=== PATIENT | female | born 1935 | race Caucasian/White ===

== ENCOUNTER 2022-01-31 10:08 | Emergency (ER) | payer MEDICARE, SELFPAY ==
[2022-01-31 10:20] VITALS: PULSE 90; RESP 18; O2SAT 97; BMI 18.6
[2022-01-31 10:46] VITALS: BP 146/80; PULSE 90; RESP 18; TEMP 36.4; O2SAT 97; BMI 18.6
[2022-01-31 11:01] LABS: Apearance,Urine Clear (Clear); Bilirubin,Urine 2+ (Negative); Blood, Urine 2+ (Negative); Color,Urine Orange (Yellow); Glucose,Urine (UA) 1+ (Negative); Ketones,Urine SMALL (Negative); Protein,Urine 4+ (Negative)
[2022-01-31 11:02] LABS: UTC Leukocyte Esterase,Urine 3+ (Negative); UTC Nitrate,Urine Positive (Negative); Urobilinogen,Urine >=8 EU/dl (0.2)
--- NOTE | 2022-01-31 11:02 | HMH.EDUTC ---
[facility] [place] Clinical Impression: UTI (urinary tract infection) Qualifiers: Urinary tract infection type: site unspecified Hematuria presence: with hematuria Qualified Code(s): N39.0 - Urinary tract infection, site not specified Disposition: Home, Self-Care Condition on Discharge: Good Instructions: Urinary Tract Infection Additional Instructions: Drink plenty of fluids. Take tylenol or ibuprofen for pain or fever. Take the medications as directed. Follow up with your regular doctor. GO TO THE ER FOR ANY WORSENING SYMPTOMS The pyridium will make your urine turn orange, this is an expected side effect. It will stain your clothes if it comes into contact with them. We will culture the urine. That will tell what bacteria is causing your infection and which antibiotics will treat it best. Sometimes the first antibiotic we prescribe turns out to not work against different bacteria. So, make sure you follow up within 3 days if you are not getting better. Prescriptions: Ciprofloxacin HCl [Cipro 500mg Tab] 500 mg PO BID 7 Days #14 tab Transmission Status: Received by [facility] #[id number] Phenazopyridine HCl [Pyridium 200mg Tablet] 200 pow PO TID #6 tab Transmission Status: Received by [facility] #[id number] Referrals: Provider,Referral, MD [Primary Care Provider] - Time of Disposition: 11:15 Medical Decision Making - Medical Records Medical records reviewed: No: I reviewed the patient's medical records. - Jay Inquiry Pt receiving controlled substance: No Vital Signs: 01/31/22 10:20 01/31/22 10:46 01/31/22 11:18 Temperature 97.5 F L 97.5 F L Temperature Source Temporal Artery Scan Pulse Rate 90 Pulse Rate [Left Radial] 90 90 Respiratory Rate 18 18 18 Blood Pressure 146/80 H Blood Pressure [Right Arm] 146/80 H Blood Pressure Mean [Right Arm] 102 02 Sat by Pulse Oximetry 97 97 Oxygen Delivery Method Room Air - Lab Data Lab results reviewed: Yes: I reviewed the patient's lab results. Lab Results 01/31/22 10:59: Urine Color [place], Urine Appearance Clear, Urine pH 5.0, Ur Specific [place] 1.020, Urine Protein 4+, Urine Glucose (UA) 1+, Urine Ketones Small, Urine Blood 2+, Urine Nitrate Positive A, Urine Bilirubin 2+ A, Urine Urobilinogen >=8, Ur Leukocyte Esterase 3+ A Orders (Tests/Meds): ORDERS Category Date Time Status Urine Culture Stat Micro 01/31/22 10:52 [place] [facility] [place] - General Stated complaint: possible kidney inf Time Seen by Provider: 01/31/22 11:02 Mode of Arrival: Wheelchair Source of Information: Patient, Spouse Limitations: hearing impaired Description of Symptoms (Recalled from Triage Doc. by RN): pt thinks she has a UTI. pt c/o burning with urination. HEENT Symptoms (Recalled from RN notes): No Resp Symptoms (Recalled from RN notes): No Skin Symptoms (Recalled from RN notes): No MS Symptoms (Recalled from RN notes): No Functional Status (Recalled from RN notes): wnl - History of Present Illness Provider Complaint: She has had burning with urination for the past 5 days. - Related Data Previous Rx's Medication Instructions Recorded Ciprofloxacin HCl [Cipro 500mg 500 mg PO BID 7 Days #14 tab 01/31/22 Tab] Phenazopyridine HCl [Pyridium 200 pow PO TID #6 tab 01/31/22 200mg Tablet] Allergies Allergy/AdvReac Type Severity Reaction Status Date / Time No Known Allergies Allergy Verified 01/31/22 10:59 - Worker's Comp Is this a Worker's Comp case?: No [facility] History - Hepatitis A Screen Drug use history?: No High risk sexual behaviors?: No History of sexually transmitted infection?: No Currently employed?: No Childcare worker?: No Do you have indoor plumbing?: Yes Do you have electricity?: Yes Attestation statement:: This patient has been screened for Hepatitis A risk factors. I have reviewed the patient's past medical history: Yes ROS Obtained: Yes All systems re
[2022-01-31 11:18] VITALS: BP 146/80; PULSE 90; RESP 18; TEMP 36.4
== END 2022-01-31 11:25 | disposition home or self-care (01) ==
PROVIDERS: Emergency Provider Nurse Practitioner Family
DX: N30.00 Acute cystitis without hematuria (principal)
CPT/HCPCS: 81003; 87086; 87088; 87186; 99212; G0463